=== PATIENT | male | born 1940 | race Caucasian/White ===

== ENCOUNTER 2018-12-08 06:51 | Emergency (ER) | payer OTHER ==
[~2018-12-08] VITALS: Ht 172.7 cm; Wt 98.3 kg
--- NOTE | 2018-12-08 07:15 | NUR ---
FIRST CONTACT WITH PT. MD AT BEDSIDE. PT C/O BP CHANGES AND FEELING UNSTEADY ON FEET. NAD. AT BEDSIDE.
[2018-12-08] MEDS ORDERED: SODIUM CHLORIDE FLUSH 10ML SYR IVF ONE (07:30)
[2018-12-08 07:53] LABS: BASOPHILS # (AUTO) 0.03 x10^3/uL (0-0.1); BASOPHILS % (AUTO) 0 % (0-1); EOSINOPHILS # (AUTO) 0.13 x10^3/uL (0-0.4); EOSINOPHILS % (AUTO) 2 % (1-7); LYMPHOCYTES % (AUTO) 15 % (22-44); MD NO; MEAN CORPUSCULAR HEMOGLOBIN 28.8 pg (27.5-34.5); MEAN CORPUSCULAR HGB CONC 32.9 g/dL (33.2-36.2); MEAN CORPUSCULAR VOLUME 87.4 fL (81-97); MEAN PLATELET VOLUME 7.5 fL (7.4-10.4); MONOCYTES # (AUTO) 0.59 x10^3/uL (0.2-0.8); MONOCYTES % (AUTO) 9 % (2-9); NEUTROPHILS # (AUTO) 4.76 x10^3/uL (1.8-6.8); NEUTROPHILS % (AUTO) 73 % (42-75); PLATELET COUNT 236 x10^3/uL (130-400); RED BLOOD COUNT 4.61 x10^6/uL (4.38-5.82)
[2018-12-08 08:02] LABS: ALBUMIN 3.4 g/dL (3.4-5.0); ANION GAP 4 mmol/L (5-15); CALCIUM 8.8 mg/dL (8.5-10.1); CHLORIDE 111 mmol/L (98-107); INTERNATIONAL NORMALIZED RATIO 1.01 (0.93-1.1); PROTHROMBIN TIME 10.6 Seconds (9.6-11.5)
[2018-12-08 08:08] LABS: ALANINE AMINOTRANSFERASE 24 U/L (12-78); ALKALINE PHOSPHATASE 62 U/L (45-117); BILIRUBIN,TOTAL 0.3 mg/dL (0.2-1.0); CREATININE 1.06 mg/dL (0.7-1.3); TROPONIN I < 0.015 ng/mL (0.000-0.045)
--- NOTE | 2018-12-08 08:09 | NUR ---
Patient is resting comfortably in bed. Vital Signs within normal limits. Urine sample requested.
--- NOTE | 2018-12-08 09:00 | NUR ---
Patient is resting comfortably in bed. Vital Signs within normal limits. Urine collected. Pt denies any needs.
[2018-12-08 09:17] LABS: CULTURE INDICATED? NO; MICROSCOPIC NOT IND
--- NOTE | 2018-12-08 10:00 | NUR ---
PT OUT OF ROOM, TAKEN TO MRI
--- NOTE | 2018-12-08 11:00 | NUR ---
PT RESTING AND DENIES ANY NEEDS. NAD.
[2018-12-08 11:01] VITALS: BP 165/66
--- NOTE | 2018-12-08 11:05 | NUR ---
Patient/Caregiver given discharge instructions and they have confirmed that they understand the instructions. Patient ambulatory with steady gait.
== END 2018-12-08 11:07 | disposition home or self-care (01) ==
LOC: ED 07:25
DX: H81.10 Benign paroxysmal vertigo, unspecified ear (principal); J01.00 Acute maxillary sinusitis, unspecified; R51 Headache; I25.2 Old myocardial infarction; Z95.5 Presence of coronary angioplasty implant and graft
CPT/HCPCS: 36415; 70450; 70551; 80053; 81003; 84484; 85025; 85610; 85730; 93005; 93880; 99284